=== PATIENT | male | born 2000 | race Two or more races ===

== ENCOUNTER 2018-01-13 00:07 | Emergency (ER) | payer OTHER ==
[~2018-01-13] VITALS: Ht 177.8 cm; Wt 86.2 kg
[2018-01-13 00:24] VITALS: BP 140/92
== END 2018-01-13 02:30 | disposition left against medical advice (07) ==
LOC: ER 00:07
DX: M25.512 Pain in left shoulder (principal); Z53.21 Procedure and treatment not carried out due to patient leaving prior to being seen by health care provider
CPT/HCPCS: 73030